=== PATIENT | female | born 1960 | race Caucasian/White ===

== ENCOUNTER 2021-11-20 18:23 | Emergency (ER) | payer MEDICAID ==
[~2021-11-20] VITALS: Ht 160 cm; Wt 51.4 kg
[2021-11-20 18:28] VITALS: TEMP 98.7
[2021-11-20 18:44] LABS: BASO % 0.9 % (0.0-2.0); EOS # 0.1 K/mm3 (0.0-0.7); GRAN # 2.7 K/mm3 (1.4-6.5); GRAN % 61.1 % (42.2-75.2); HEMOGLOBIN 12.9 g/dl (12.5-16.0); LYMPH # 1.2 K/mm3 (1.2-3.4); LYMPH % 27.5 % (20.0-51.0); MEAN CELL VOLUME 91 fl (80.0-100.0); MEAN CORPUSCULAR HEMOGLOBIN 31 pg (27-31); MEAN CORPUSCULAR HGB CONC 34 g/dl (33.0-37.0); MEAN PLATELET VOLUME 9.2 fl (7.4-10.4); MONO # 0.4 K/mm3 (0.1-0.6); MONO % 8.3 % (1.7-9.3); PLATELET COUNT 146 K/mm3 (130-400); RED BLOOD COUNT 4.19 M/mm3 (4.10-5.30); REDCELL DISTRIBUTION WIDTH-CV 12.5 % (11.5-14.5)
[2021-11-20 18:58] LABS: ALBUMIN 3.6 gm/dL (3.4-4.8); CALCIUM 8.8 mg/dL (8.4-10.2); CREATININE, serum 0.95 mg/dL (0.57-1.11); PHOSPHOROUS 3.6 mg/dL (2.3-4.7)
[2021-11-20 21:10] VITALS: BP 113/76; PULSE 64
== END 2021-11-20 21:10 | disposition home or self-care (01) ==
LOC: COL.ER 18:23
PROVIDERS: Emergency Medicine
DX: S09.90XA Unspecified injury of head, initial encounter (principal); G40.909 Epilepsy, unspecified, not intractable, without status epilepticus; R07.89 Other chest pain; W01.198A Fall on same level from slipping, tripping and stumbling with subsequent striking against other object, initial encounter; Y92.22 Religious institution as the place of occurrence of the external cause